=== PATIENT | male | born 1980 | race Hispanic/Latino ===

== ENCOUNTER 2021-03-04 16:29 | Emergency (ER) | payer SELFPAY ==
[~2021-03-04] VITALS: Ht 172.7 cm; Wt 86.2 kg
[2021-03-04] MEDS ORDERED: SOTROVIMAB 500 MG in SODIUM CHLORIDE 0.9% 100 ML IV ONE (17:15)
[2021-03-04] MEDS ORDERED: ONDANSETRON ODT4 MG PO (17:47)
== END 2021-03-04 18:21 | disposition home or self-care (01) ==
LOC: ER 17:10
DX: U07.1 COVID-19 (principal)
CPT/HCPCS: 99283; J7050